=== PATIENT | male | born 1985 | race Caucasian/White ===

== ENCOUNTER 2018-10-04 13:46 | Emergency (ER) | payer MEDICAID ==
[~2018-10-04] VITALS: Ht 182.9 cm; Wt 90.7 kg
[2018-10-04] MEDS ORDERED: VENL225T PO (14:09)
[2018-10-04] MEDS ORDERED: QUET25TA PO (14:09)
[2018-10-04] MEDS ORDERED: HYDR50CA PO (14:09)
[2018-10-04 14:29] LABS: BASOPHILS % (AUTO) 0.6 % (0.0-2.0); EOSINOPHILS % (AUTO) 4.3 % (0.0-6.0); HEMATOCRIT 46 % (39-51); HEMOGLOBIN 15.1 g/dL (13.5-17.5); LYMPHOCYTES # (AUTO) 1.1 /CMM (0.8-4.8); LYMPHOCYTES % (AUTO) 24.8 % (20.0-44.0); MEAN CORPUSCULAR HGB CONC 33 g/dl (31.0-36.0); MEAN CORPUSCULAR VOLUME 83 fL (80-96); MONOCYTES # (AUTO) 0.3 /CMM (0.1-1.30); NEUTROPHILS # (AUTO) 2.7 /CMM (1.8-8.9); NEUTROPHILS % (AUTO) 63.3 % (43.0-81.0); PLATELET COUNT (AUTO) 224 /CMM (150-450); RED BLOOD CELL COUNT(AUTO) 5.55 MIL/uL (4.5-6.0); WHITE BLOOD COUNT (AUTO) 4.3 K/uL (4.3-11.0)
[2018-10-04 14:57] LABS: CALCIUM, SERUM 9.4 mg/dL (8.5-10.1); CARBON DIOXIDE 29 mmol/L (21-32); CHLORIDE 104 mmol/L (98-107); GLUCOSE 85 mg/dL (74-106); POTASSIUM 4.3 mmol/L (3.5-5.1); SODIUM SERUM 141 mmol/L (136-145); UREA NITROGEN, BLOOD 12 mg/dL (7-18)
[2018-10-04 15:02] LABS: ALANINE AMINOTRANSFERASE 28 U/L (12-78); ALBUMIN 3.6 g/dL (3.4-5.0); ALCOHOL, BLOOD < 3 mg/dL (0-0); ALKALINE PHOSPHATASE 69 U/L (46-116); ASPARTATE AMINOTRANSFERASE 15 U/L (15-37); BILIRUBIN,DIRECT 0.2 mg/dL (0.0-0.2); BILIRUBIN,TOTAL 0.8 mg/dL (0.2-1.0)
[2018-10-04 15:03] LABS: ACETAMINOPHEN < 10 ug/ml (10-30)
--- NOTE | 2018-10-04 15:26 | NUR ---
Initial contact with pt in custudy handcuffed to bed with Elias PERKINS , no acute distress , denies complaints at present
--- NOTE | 2018-10-04 15:26 | NUR ---
Rosmery buitrago in EDM - 10/04/18 at 1559 by MICHAEL initial contact with pt , no acute distress pt in custody handcuffed to bed , [employer] [employer] at bedside -
--- NOTE | 2018-10-04 15:59 | NUR ---
Note undone in [facility] - 10/04/18 at 1601 by SAPPHIREAS Portia blancator seen and evaluated pt Addendum: 10/04/18 at 1600 by MICANLAS Amendment undone in [facility] - 10/04/18 at 1601 by MICANLAS pt quiet at present
[2018-10-04 16:10] LABS: APPEARANCE,URINE Clear (CLEAR); BILIRUBIN,URINE Negative (NEGATIVE); BLOOD, URINE Negative Ery/uL (NEGATIVE); COLOR,URINE Yellow (YELLOW); KETONES,URINE Negative (NEGATIVE); LEUKOCYTE ESTERASE ,URINE Negative (NEGATIVE); NITRITE, URINE Negative (NEGATIVE); PROTEIN,URINE Negative (NEGATIVE); UGLUCOSE Negative (NEGATIVE); UROBILINOGEN,URINE 0.2 EU/dL (0.2)
[2018-10-04] MEDS ORDERED: QUETIAPINE FUMARATE 100 MG TABLET PO SCH (17:00)
[2018-10-04] MEDS ORDERED: hydrOXYzine 10 MG TABLET PO ONE (17:00)
[2018-10-04] MEDS ORDERED: VENLAFAXINE XR 150 MG CAP.SR.24H PO ONE (17:00)
[2018-10-04] MEDS ORDERED: hydrOXYzine 10 MG TABLET ONE (17:02)
[2018-10-04] MEDS ORDERED: VENLAFAXINE XR 150 MG CAP.SR.24H ONE (17:04)
[2018-10-04] MEDS ORDERED: VENLAFAXINE 37.5 MG TABLET ONE (17:04)
--- NOTE | 2018-10-04 17:12 | NUR ---
meds given po as ordered - Portia here to evaluate pt.
--- NOTE | 2018-10-04 17:23 | NUR ---
Rosmery buitrago in EDM - 10/04/18 at 1724 by MICHAEL returend from CT - vomiting bile fluid Dr Spaulding made aware
--- NOTE | 2018-10-04 17:52 | NUR ---
Pt been placed on hold by Portia -placed pt wrist restraints as ordered by Dr Spaulding - will placed pt on suicide precaution and continue to monitor.
--- NOTE | 2018-10-04 18:39 | NUR ---
pt quiet at present . VSS, remained on wrist restraints
--- NOTE | 2018-10-04 19:16 | NUR ---
report to Crigor RN to assume care
--- NOTE | 2018-10-04 19:33 | NUR ---
PT ACCEPTED AT [address] CRABTREE/DR CHAVEZ/ NUMBER FOR REPORT [id number]
--- NOTE | 2018-10-04 19:46 | NUR ---
Patient is resting comfortably in bed with eyes closed. Easily aroused. VSS
--- NOTE | 2018-10-04 20:53 | NUR ---
ETA [address] [facility] TRIP#[id number]
[2018-10-04 21:00] VITALS: BP 142/66
--- NOTE | 2018-10-04 21:14 | NUR ---
REPORT GIVEN TO MARTINA ROGERS [facility].
== END 2018-10-04 22:12 | disposition short-term general hospital (02) ==
LOC: ER 13:48
DX: F20.9 Schizophrenia, unspecified (principal); R45.851 Suicidal ideations; F32.9 Major depressive disorder, single episode, unspecified; F12.10 Cannabis abuse, uncomplicated
CPT/HCPCS: 36415; 80048-TC; 80076-TC; 80305; 81000-TC; 85025-TC; A4606; G0480; Q0177; Z7610